=== PATIENT | female | born 1980 | race Caucasian/White ===

== ENCOUNTER 2018-07-29 03:26 | Emergency (ER) | payer BC ==
[2018-07-29 04:02] LABS: #Eosinphils 0.1 thou/uL (0.0-0.7); #Lymphocytes 2.9 thou/uL (1.20-3.40); #Monocytes 0.5 thou/uL (0.11-0.59); #Neutrophils 6.4 thou/uL (1.40-6.50); %Basophils 0.5 % (0.0-1.0); %Eosinophils 1.2 % (0.0-10.0); %Neutrophils 64.3 % (42.0-75.0); Hemoglobin 12.1 g/dL (12.0-16.0); Mean Corpuscular HGB CONC 33.7 g/dL (32.0-36.0); Mean Corpuscular Hemoglobin 30.3 pg (27.0-31.0); Mean Corpuscular Volume 89.8 fL (78.0-98.0); Mean Platelet Volume 9.3 fL (7.4-10.4); Platelet Count 190 thou/uL (130-400); RBC Distribution Width 11.7 % (11.5-14.5); Red Blood Cell (RBC) Count 3.98 mill/uL (4.20-5.40)
[2018-07-29 04:23] LABS: ALT (SGPT) 10 U/L (8-55); AST (SGOT) 13 U/L (5-34); Albumin 3.9 g/dL (3.5-5.0); Alkaline Phosphatase 32 U/L (40-150); Anion Gap 14 mmol/L (10-20); BUN (Urea Nitrogen) 8 mg/dL (7.0-18.7); Bilirubin, Total 0.5 mg/dL (0.2-1.2); Calc. Creatinine Clearance 0 mL/min (70-130); Carbon Dioxide 20 mmol/L (22-29); Chloride 108 mmol/L (98-107); Estimated GFR-MDRD Greater than 90; Glucose 96 mg/dL (70-105); Potassium 3.7 mmol/L (3.5-5.1); Protein, Total 6.9 g/dL (6.0-8.3); Sodium 138 mmol/L (136-145)
--- NOTE | 2018-07-29 08:26 | ULT ---
PRELIMINARY REPORT/[facility]/EMERGENTY AFTER-HOURS PROCEDURE US Uterus, Limited CLINICAL HISTORY: 37 years old, female; Signs and symptoms; Lmp or gestational age (in weeks): 14w6d; Antepartum compli cations; Bleeding; ; Patient HX: Vaginal bleeding tonight (bleeding has stopped) TECHNIQUE: Real-time ultrasound of the maternal uterus (limited) with image documentation. COMPARISON: No relevant prior studies available. FINDINGS: Single living intrauterine gestation in transverse position. heart rate: 155 bpm. Possible smal l subchorionic hemorrhage. CORNELIA: 14w6d. MEGAN(CORNELIA): 01/21/2019. MEGAN(LMP): 01/23/2019. Low lying grade 1 placenta. Amniotic fluid appears adequate. Cervix is closed measuring 3.6 cm in length. IMPRESSION: Single viable intrauterine . Possible small subchorionic hemorrhage. Findings described abov e. Thank you for allowing us to participate in the care of your patient. Dictated and Authenticated by: Charbel Bueno MD 07/29/2018 4:50 AM Central Time ([place] & [place]) FINAL REPORT ULTRASOUND PELVIC TRANSVAGINAL: HISTORY: Fourteen weeks . Vaginal bleeding. COMPARISON: None. FINDINGS: Findings and impression are concordant with the preliminary report. POS: [facility]
[2018-07-30 01:41] LABS: Chlamydia by PCR Not Detected (NotDetected); GC by PCR Not Detected (NotDetected)
== END 2018-07-29 05:07 | disposition home or self-care (01) ==
LOC: ERS 03:26
DX: O20.8 Other hemorrhage in early pregnancy (principal); Z3A.14 14 weeks gestation of pregnancy
CPT/HCPCS: 36415; 76856; 80053; 84702; 85025; 86900; 86901; 87070; 87491; 87591